=== PATIENT | male | born 1985 | race Caucasian/White ===

== ENCOUNTER 2021-04-06 22:38 | Emergency (ER) | payer OTHER, MEDICAID, SELFPAY ==
--- NOTE | ~2021-04-06 | XR_ITS ---
EXAMINATION: XR ANKLE, LEFT CLINICAL INFORMATION: Bimalleolar swelling. Pain. COMPARISON: None TECHNIQUE: 3 views of the left ankle. FINDINGS: Soft tissue swelling at lateral malleolus. There is no fracture of the medial or lateral or posterior malleolus. Ankle mortise is congruent. There is a 2 mm osseous density adjacent to the talus at the talar tubercle at the inferior ankle joint. This may be a small chip fracture. This is seen on image #1 XR/XR ankle LT min 3V IMPRESSION: Soft tissue swelling the lateral malleolus. Possible small chip fracture from the lateral talar tubercle at the inferior ankle joint the lateral side of the joint.
[2021-04-06 22:42] VITALS: BP 144/76; PULSE 99; RESP 20; TEMP 36.7; O2SAT 100; BMI 23.6
--- NOTE | 2021-04-07 00:04 | ED_ITS ---
HPI - Extremity Injury (Lower) General Chief Complaint: Extremity Injury, Lower Stated Complaint: Fall/ankle pain Time Seen by Provider: 04/07/21 00:03 Source: patient Mode of arrival: ambulatory History of Present Illness HPI Narrative: 35-year-old male who presents after having slipped off of a piece of equipment and landing onto his left foot with reported inversion and feeling like his ankle gave out . Thereafter he developed significant swelling and pain. Otherwise, he denies any numbness / tingling. Related Data Allergies Allergy/AdvReac Type Severity Reaction Status Date / Time No Known Allergies Allergy Verified 04/06/21 22:49 Review of Systems Review of Systems: Pertinent positives and negatives as stated in HPI 10 point review of systems is otherwise negative. [facility] Past Medical History Source: nursing notes reviewed Medical History No known health problems Splenic hemorrhage Social History Social History Advance Directives: No Physical Exam Vital Signs: Vital Signs: Last Vital Signs Temp 98.1 F 04/06/21 22:42 Pulse 99 04/06/21 22:42 Resp 20 04/06/21 22:42 BP 144/76 H 04/06/21 22:42 Pulse Ox 100 04/06/21 22:42 Body Mass Index 23.6 VITAL SIGNS: Reviewed. GENERAL: Well developed, well nourished, in no acute distress. HEAD: Normocephalic/atraumatic EYES: PERRLA, EOMI NOSE: Nares patent bilateral OROPHARYNX: no oral lesions noted, posterior pharynx clear NECK: Supple, no adenopathy LUNGS: Normal breath sounds. No adventitious sounds or accessory muscle use. SpO2<100> CARDIOVASCULAR: Regular rate and rhythm without noted murmurs ABDOMEN: Soft, non-tender, non-distended with bowel sounds. LEFT ANKLE: BY MALLEOLAR SWELLING, CAPILLARY REFILL LESS THAN 3 SECONDS, PALPABLE DP/PT, SENSATION INTACT SKIN: Inspection of the skin reveals no rashes NEUROLOGIC: Alert and oriented x 4. Strength and sensation to light touch were grossly intact x 4. Course Course Course Narrative: 35-YEAR-OLD MALE WITH HISTORY AND CLINICAL PRESENTATION SUGGESTIVE OF POSSIBLE SPRAIN, DISLOCATION, FRACTURE. Review of all investigations significant for questionable small chip fracture from the lateral talar tubercle. Results discussed with the patient and he was placed in a walking boot and provided with crutches. He was discharged in stable condition with instructions to follow-up with orthopedics by calling the office in the morning for re-evaluation further outpatient management. Discharge Plan Discharge Clinical Impression: Avulsion fracture of left talus Patient Disposition: Home, Self-Care Instructions: Talar Fracture in Adults (ED), Walking Boot (ED), Crutch Instructions (ED) Additional Instructions: 1. Tylenol 1000 mg, orally, every 6 hours as needed for pain control. Do not exceed 4000 mg within 24 hours. 2. Ibuprofen 400 mg, orally with milk or food, every 6 hours as needed for pain control. Recommend combining this with the Tylenol for added symptom relief. 3. Apply ice to unexposed skin, 5-10 minutes, 3 to 4 times a day as well as elevating the extremity when possible. 4. Please call the orthopedic office in the morning, the referral is listed for you below. return to the ER for acute worsening of your symptoms. Referrals: Tika Rodriguez MD [Physician] - 2 days ( evaluation and further management of suspected left lateral talar tubercle fracture. Patient placed in walking boot and provided with crutches.) Stand Alone Forms: Work/School Release
[2021-04-07] MEDS: Acetaminophen 325 MG TABLET 975 MG PO (00:24)
[2021-04-07] MEDS: Ibuprofen 400 MG TABLET PO (00:24)
== END 2021-04-07 01:07 | disposition home or self-care (01) ==
PROVIDERS: Emergency Provider Student in an Organized Health Care Education/Training Program
DX: S92.152A Displaced avulsion fracture (chip fracture) of left talus, initial encounter for closed fracture (principal); W18.40XA Slipping, tripping and stumbling without falling, unspecified, initial encounter; Y93.9 Activity, unspecified; Y92.9 Unspecified place or not applicable; Y99.9 Unspecified external cause status
CPT/HCPCS: 73610; 99283

== ENCOUNTER → 2021-04-26 14:36 | Outpatient (BNVA) | payer OTHER, MEDICAID, SELFPAY | PROVIDERS: PCP Internal Medicine; Visit Provider Physician Assistant ==